=== PATIENT | male | born 1975 | race African-American/Black ===

== ENCOUNTER 2018-05-09 11:28 | Emergency (ER) | payer OTHER ==
[~2018-05-09] VITALS: Ht 188 cm; Wt 90.7 kg
--- NOTE | 2018-05-09 12:05 | NUR ---
pt is in room #2b. dr Mcfarland evaluated the pt.
--- NOTE | 2018-05-09 12:50 | NUR ---
pt was d/c'D from er by dr rubio. d/c instructions given to the pt.
[2018-05-09 12:51] VITALS: BP 136/78
== END 2018-05-09 12:57 | disposition home or self-care (01) ==
LOC: ER 11:28
DX: S82.55XA Nondisplaced fracture of medial malleolus of left tibia, initial encounter for closed fracture (principal); X58.XXXA Exposure to other specified factors, initial encounter; Y93.89 Activity, other specified; Y92.89 Other specified places as the place of occurrence of the external cause; Y99.8 Other external cause status
CPT/HCPCS: 73610; 73630; A4663

== ENCOUNTER 2018-05-28 10:42 | Emergency (ER) | payer OTHER ==
[~2018-05-28] VITALS: Ht 188 cm; Wt 90.7 kg
--- NOTE | 2018-05-28 11:39 | NUR ---
Patient left without being seen by ER physician.
== END 2018-05-28 11:42 | disposition left against medical advice (07) ==
LOC: ER 10:43
DX: Z53.21 Procedure and treatment not carried out due to patient leaving prior to being seen by health care provider (principal)
CPT/HCPCS: A4663